=== PATIENT | female | born 1940 | race Caucasian/White ===

== ENCOUNTER 2018-07-17 17:30 | Inpatient (IN) ==
[2018-07-17] MEDS ORDERED: MORPHINE 4 MG/1 ML VIAL IV STA (17:47)
[2018-07-17] MEDS ORDERED: ALBUTEROL/IPRATROPIUM 3 ML NEB RESP TX STA (17:47)
[2018-07-17] MEDS ORDERED: ONDANSETRON 4 MG/2 ML VIAL IV STA (17:47)
[2018-07-17] MEDS ORDERED: FUROSEMIDE 100 MG/10 ML VIAL IV STA (17:47)
[2018-07-17] MEDS ORDERED: NITROGLYCERIN 2% OINT 1 INCH/GM PACK TOP STA (17:47)
[2018-07-17] MEDS ORDERED: ASPIRIN 325 MG TABLET PO STA (17:47)
[2018-07-17] MEDS ORDERED: LABETALOL 20 MG/4 ML SYRINGE IV STA (17:47)
[2018-07-17] MEDS ORDERED: methylPREDNISolone SOD SUC 125 MG/2 ML VIAL IV STA (17:47)
[2018-07-17 18:15] LABS: ABG Base Excess 1.7 MMOL/L (-2.5-2.5); ABG Oxygen Saturation 99.4 % (95-100); ABG TCO2 23.1 MMOL/L (23-27); Allen Test Positive; Pt O2 Delivery Device Other
[2018-07-17 19:16] LABS: Apearance,Urine CLEAR (Clear); Bilirubin,Urine Negative (Negative); Blood, Urine Negative (Negative); Glucose,Urine (UA) Negative (Negative); Ketones,Urine 5 mg/dL (Negative); Mucus,Urine Occasional /LPF (Occasional); Nitrite,Urine Negative (Negative); Protein,Urine Negative; RBC,Urine 1 /HPF (0-4); Squamous Epithelial Cell,Urine Occasional /HPF (0-10); Urine Color Yellow (Yellow); Urine Specific Gravity 1.013 (1.001-1.035); Urine Urobilinogen < 2.0 EU/DL (0.2-1.0); WBC,Urine <1 /HPF (0-6)
[2018-07-17 19:25] LABS: Basophils # 0.1 10*3/uL (0.0-0.2); Basophils % 1.1 % (0.0-0.8); Eosinophils # 0.5 10*3/uL (0.0-0.87); Eosinophils % 6.8 % (0.00-10.9); Hematocrit 39.9 VOL% (35.7-47.0); Hemoglobin 12.6 GM/DL (12.0-16.0); Immature Granulocytes % 0.5 %; Immature Granulocytes Absolute 0.04 #; Lymphocytes # 1.4 10*3/uL (1.4-4.0); Lymphocytes % 17.3 % (21.3-54.2); Mean Corpuscular HGB Conc 31.6 GM/DL (32-36); Mean Corpuscular Hemoglobin 30 PG (27-34); Mean Corpuscular Volume 95.7 FL (87-102); Mean Platelet Volume 9.3 FL (9.6-12.0); Monocytes # 0.7 10*3/uL (0.11-0.8); Monocytes % 8.1 % (1.7-12.7); Neutrophils # 5.3 10*3/uL (1.4-7.4); Neutrophils % 66.2 % (38.7-73.9); Platelet Count 323 T/CUMM (130-400); Red Blood Count 4.17 MC/CUMM (3.8-5.5); Red Cell Distribution Width 13.7 % (9.3-17.3)
[2018-07-17 19:36] LABS: INR 0.9; PT Patient Result 10.3 SECS
[2018-07-17 19:46] LABS: Albumin 3.9 G/DL (3.4-5.0); Bilirubin,Total 0.5 MG/DL (0.2-1.0); Calcium 10.1 MG/DL (8.5-10.1); Osmolality,Calculated 284.5 MOS/KG (273-304); Potassium 3.9 MMOL/L (3.5-5.1); Total Protein 7.8 G/DL (6.4-8.3)
[2018-07-17] MEDS ORDERED: NITROGLYCERIN SL 0.4 MG TABLET SL PRN (22:28)
[2018-07-17] MEDS ORDERED: GLUCAGON 1 MG VIAL IM PRN (22:28)
[2018-07-17] MEDS ORDERED: ACETAMINOPHEN 325 MG TABLET PO PRN (22:28)
[2018-07-17] MEDS ORDERED: DEXTROSE 50% 25 GM/50 ML VIAL IV PRN (22:28)
[2018-07-17] MEDS ORDERED: ONDANSETRON 4 MG/2 ML VIAL IV PRN (22:28)
[2018-07-17] MEDS ORDERED: MORPHINE 4 MG/1 ML VIAL IV PRN (22:28)
[2018-07-17] MEDS: ALBUTEROL/IPRATROPIUM 3 ML NEB RESP TX SCH (23:14)
[2018-07-17] MEDS: SODIUM CHLORIDE 0.9% 1,000 ML IV SCH (23:23)
[2018-07-17] MEDS: ISOSORBIDE MONONITRATE 30 MG TABLET PO SCH (23:23)
[2018-07-17] MEDS: DOCUSATE SODIUM 100 MG CAPSULE PO SCH (23:23)
[2018-07-17] MEDS: ENOXAPARIN 40 MG/0.4 ML SYRINGE SUBCUT SCH (23:23)
[2018-07-17] MEDS: cefTRIAXone 1,000 MG in SYRINGE 1 EACH IV SCH (23:24)
[2018-07-17] MEDS: NITROGLYCERIN 2% OINT 1 INCH/GM PACK TOP SCH (23:25)
[2018-07-17] MEDS: INSULIN REGULAR 100 UNIT/ML SUBCUT SCH (23:33)
[2018-07-18] MEDS: ALBUTEROL/IPRATROPIUM 3 ML NEB RESP TX SCH ×6 (03:04→23:30)
[2018-07-18] MEDS: methylPREDNISolone SOD SUC 40 MG/1 ML VIAL IV SCH ×3 (04:18→21:52)
[2018-07-18 04:52] LABS: Basophils % 0.5 % (0.0-0.8); Hematocrit 37.3 VOL% (35.7-47.0); Hemoglobin 11.6 GM/DL (12.0-16.0); Immature Granulocytes % 0.3 %; Immature Granulocytes Absolute 0.02 #; Lymphocytes # 0.6 10*3/uL (1.4-4.0); Lymphocytes % 9.1 % (21.3-54.2); Mean Corpuscular HGB Conc 31.1 GM/DL (32-36); Mean Corpuscular Hemoglobin 30 PG (27-34); Mean Corpuscular Volume 95.9 FL (87-102); Mean Platelet Volume 9.4 FL (9.6-12.0); Monocytes # 0.1 10*3/uL (0.11-0.8); Monocytes % 1.8 % (1.7-12.7); Neutrophils # 5.3 10*3/uL (1.4-7.4); Neutrophils % 88.3 % (38.7-73.9); Platelet Count 311 T/CUMM (130-400); Red Blood Count 3.89 MC/CUMM (3.8-5.5); Red Cell Distribution Width 13.8 % (9.3-17.3)
[2018-07-18 05:14] LABS: Albumin 3.6 G/DL (3.4-5.0); Bilirubin,Total 0.6 MG/DL (0.2-1.0); Calcium 9.8 MG/DL (8.5-10.1); Osmolality,Calculated 287.7 MOS/KG (273-304); Potassium 3.8 MMOL/L (3.5-5.1); Risk Ratio 1.97; Total Protein 7.4 G/DL (6.4-8.3); VLDL CHOLESTEROL 10.4 MG/DL
[2018-07-18] MEDS: NITROGLYCERIN 2% OINT 1 INCH/GM PACK TOP SCH ×2 (06:09→12:06)
[2018-07-18] MEDS ORDERED: ASPIRIN EC 81 MG TABLET PO SCH (09:00)
[2018-07-18] MEDS: INSULIN REGULAR 100 UNIT/ML SUBCUT SCH ×4 (09:04→21:53)
[2018-07-18] MEDS: DOCUSATE SODIUM 100 MG CAPSULE PO SCH ×3 (09:07→21:52)
[2018-07-18] MEDS: MONTELUKAST 10 MG TABLET PO SCH (09:07)
[2018-07-18] MEDS: FEXOFENADINE 180 MG TABLET PO SCH (09:07)
[2018-07-18] MEDS: ROSUVASTATIN 10 MG TABLET PO SCH (09:07)
[2018-07-18] MEDS: PANTOPRAZOLE 40 MG VIAL IV SCH (09:08)
[2018-07-18] MEDS: ISOSORBIDE MONONITRATE 30 MG TABLET PO SCH ×2 (09:10→21:52)
[2018-07-18] MEDS: CYANOCOBALAMIN 500 MCG TABLET PO SCH (09:10)
[2018-07-18] MEDS: FUROSEMIDE 20 MG TABLET PO SCH (09:11)
[2018-07-18] MEDS: POTASSIUM CHLORIDE 10 MEQ TABLET PO SCH (09:11)
[2018-07-18] MEDS: SERTRALINE 50 MG TABLET PO SCH (09:11)
[2018-07-18] MEDS: ASPIRIN EC 325 MG TABLET PO SCH (09:11)
[2018-07-18] MEDS: METOPROLOL TARTRATE 25 MG TABLET PO SCH (09:11)
[2018-07-18] MEDS: LOSARTAN 50 MG TABLET PO SCH (09:12)
[2018-07-18 09:26] LABS: Troponin I < 0.015 NG/ML (0.00-0.045)
[2018-07-18 11:27] LABS: Troponin I < 0.015 NG/ML (0.00-0.045)
[2018-07-18 15:09] LABS: Troponin I < 0.015 NG/ML (0.00-0.045)
[2018-07-19] MEDS: SODIUM CHLORIDE 0.9% 1,000 ML IV SCH (00:40)
[2018-07-19] MEDS: ENOXAPARIN 40 MG/0.4 ML SYRINGE SUBCUT SCH (00:41)
[2018-07-19] MEDS: cefTRIAXone 1,000 MG in SYRINGE 1 EACH IV SCH (00:41)
[2018-07-19] MEDS: ALBUTEROL/IPRATROPIUM 3 ML NEB RESP TX SCH ×5 (04:19→20:21)
[2018-07-19] MEDS: methylPREDNISolone SOD SUC 40 MG/1 ML VIAL IV SCH ×2 (04:27→12:50)
[2018-07-19 07:55] LABS: Basophils % 0.2 % (0.0-0.8); Hematocrit 39.5 VOL% (35.7-47.0); Hemoglobin 12.4 GM/DL (12.0-16.0); Immature Granulocytes % 0.5 %; Immature Granulocytes Absolute 0.05 #; Lymphocytes # 0.5 10*3/uL (1.4-4.0); Lymphocytes % 5.1 % (21.3-54.2); Mean Corpuscular HGB Conc 31.4 GM/DL (32-36); Mean Corpuscular Hemoglobin 30 PG (27-34); Mean Corpuscular Volume 95.6 FL (87-102); Mean Platelet Volume 9.1 FL (9.6-12.0); Monocytes # 0.4 10*3/uL (0.11-0.8); Monocytes % 3.7 % (1.7-12.7); Neutrophils # 9.6 10*3/uL (1.4-7.4); Neutrophils % 90.5 % (38.7-73.9); Platelet Count 328 T/CUMM (130-400); Red Blood Count 4.13 MC/CUMM (3.8-5.5); Red Cell Distribution Width 13.9 % (9.3-17.3); White Blood Count 10.6 T/CUMM (4-12)
[2018-07-19 08:17] LABS: Calcium 9.5 MG/DL (8.5-10.1); Osmolality,Calculated 287.8 MOS/KG (273-304); Potassium 4.2 MMOL/L (3.5-5.1)
[2018-07-19] MEDS: FEXOFENADINE 180 MG TABLET PO SCH (09:46)
[2018-07-19] MEDS: INSULIN REGULAR 100 UNIT/ML SUBCUT SCH ×3 (09:46→19:37)
[2018-07-19] MEDS: MONTELUKAST 10 MG TABLET PO SCH (09:46)
[2018-07-19] MEDS: ASPIRIN EC 325 MG TABLET PO SCH (09:46)
[2018-07-19] MEDS: ROSUVASTATIN 10 MG TABLET PO SCH (09:47)
[2018-07-19] MEDS: FUROSEMIDE 20 MG TABLET PO SCH (09:48)
[2018-07-19] MEDS: POTASSIUM CHLORIDE 10 MEQ TABLET PO SCH (09:48)
[2018-07-19] MEDS: METOPROLOL TARTRATE 25 MG TABLET PO SCH (09:49)
[2018-07-19] MEDS: CYANOCOBALAMIN 500 MCG TABLET PO SCH (09:49)
[2018-07-19] MEDS: LOSARTAN 50 MG TABLET PO SCH ×2 (09:49→22:06)
[2018-07-19] MEDS: SERTRALINE 50 MG TABLET PO SCH (09:49)
[2018-07-19] MEDS: ISOSORBIDE MONONITRATE 30 MG TABLET PO SCH ×2 (09:49→22:06)
[2018-07-19] MEDS: DOCUSATE SODIUM 100 MG CAPSULE PO SCH ×2 (09:50→22:06)
[2018-07-19] MEDS: PANTOPRAZOLE 40 MG VIAL IV SCH (09:50)
[2018-07-19] MEDS: BENZONATATE 100 MG CAPSULE PO PRN (09:50)
[2018-07-19] MEDS: cloNIDine 0.1 MG TABLET PO SCH (22:08)
[2018-07-20] MEDS: ALBUTEROL/IPRATROPIUM 3 ML NEB RESP TX SCH ×4 (01:06→19:55)
[2018-07-20] MEDS: ENOXAPARIN 40 MG/0.4 ML SYRINGE SUBCUT SCH (03:05)
[2018-07-20] MEDS: cefTRIAXone 1,000 MG in SYRINGE 1 EACH IV SCH (03:05)
[2018-07-20] MEDS: methylPREDNISolone SOD SUC 40 MG/1 ML VIAL IV SCH ×2 (03:06→10:29)
[2018-07-20] MEDS: SODIUM CHLORIDE 0.9% 1,000 ML IV SCH (03:07)
[2018-07-20] MEDS: INSULIN REGULAR 100 UNIT/ML SUBCUT SCH ×5 (03:19→21:39)
[2018-07-20 05:17] LABS: Basophils % 0.3 % (0.0-0.8); Eosinophils % 0.5 % (0.00-10.9); Hematocrit 36.3 VOL% (35.7-47.0); Hemoglobin 11.4 GM/DL (12.0-16.0); Immature Granulocytes % 0.4 %; Immature Granulocytes Absolute 0.03 #; Lymphocytes % 12.9 % (21.3-54.2); Mean Corpuscular HGB Conc 31.4 GM/DL (32-36); Mean Corpuscular Hemoglobin 30 PG (27-34); Mean Corpuscular Volume 96.3 FL (87-102); Mean Platelet Volume 9.3 FL (9.6-12.0); Monocytes # 0.6 10*3/uL (0.11-0.8); Monocytes % 7.3 % (1.7-12.7); Neutrophils % 78.6 % (38.7-73.9); Platelet Count 320 T/CUMM (130-400); Red Blood Count 3.77 MC/CUMM (3.8-5.5); Red Cell Distribution Width 14.2 % (9.3-17.3); White Blood Count 7.6 T/CUMM (4-12)
[2018-07-20 05:32] LABS: Calcium 9.5 MG/DL (8.5-10.1); Osmolality,Calculated 293.4 MOS/KG (273-304); Potassium 4.2 MMOL/L (3.5-5.1)
[2018-07-20] MEDS: PANTOPRAZOLE 40 MG VIAL IV SCH (09:56)
[2018-07-20] MEDS: ROSUVASTATIN 10 MG TABLET PO SCH (10:02)
[2018-07-20] MEDS: BENZONATATE 100 MG CAPSULE PO PRN (10:02)
[2018-07-20] MEDS: FEXOFENADINE 180 MG TABLET PO SCH (10:03)
[2018-07-20] MEDS: METOPROLOL TARTRATE 25 MG TABLET PO SCH (10:03)
[2018-07-20] MEDS: ISOSORBIDE MONONITRATE 30 MG TABLET PO SCH ×2 (10:03→21:38)
[2018-07-20] MEDS: ASPIRIN EC 325 MG TABLET PO SCH (10:03)
[2018-07-20] MEDS: MONTELUKAST 10 MG TABLET PO SCH (10:08)
[2018-07-20] MEDS: DOCUSATE SODIUM 100 MG CAPSULE PO SCH ×2 (10:08→21:38)
[2018-07-20] MEDS: LOSARTAN 50 MG TABLET PO SCH ×2 (10:09→21:38)
[2018-07-20] MEDS: SERTRALINE 50 MG TABLET PO SCH (10:09)
[2018-07-20] MEDS: POTASSIUM CHLORIDE 10 MEQ TABLET PO SCH (10:09)
[2018-07-20] MEDS: CYANOCOBALAMIN 500 MCG TABLET PO SCH (10:09)
[2018-07-20] MEDS: FUROSEMIDE 20 MG TABLET PO SCH (10:09)
[2018-07-20] MEDS: cloNIDine 0.1 MG TABLET PO SCH (21:38)
[2018-07-21] MEDS: ALBUTEROL/IPRATROPIUM 3 ML NEB RESP TX SCH ×4 (01:37→19:59)
[2018-07-21] MEDS: ENOXAPARIN 40 MG/0.4 ML SYRINGE SUBCUT SCH ×2 (01:58→23:13)
[2018-07-21] MEDS: methylPREDNISolone SOD SUC 40 MG/1 ML VIAL IV SCH ×3 (01:59→23:15)
[2018-07-21] MEDS: cefTRIAXone 1,000 MG in SYRINGE 1 EACH IV SCH ×2 (01:59→23:19)
[2018-07-21 05:23] LABS: Basophils % 0.5 % (0.0-0.8); Eosinophils # 0.1 10*3/uL (0.0-0.87); Eosinophils % 1.1 % (0.00-10.9); Hemoglobin 11.9 GM/DL (12.0-16.0); Immature Granulocytes % 0.5 %; Immature Granulocytes Absolute 0.04 #; Lymphocytes % 12.9 % (21.3-54.2); Mean Corpuscular HGB Conc 30.5 GM/DL (32-36); Mean Corpuscular Hemoglobin 30 PG (27-34); Mean Corpuscular Volume 96.8 FL (87-102); Mean Platelet Volume 9.6 FL (9.6-12.0); Monocytes # 0.5 10*3/uL (0.11-0.8); Monocytes % 6.8 % (1.7-12.7); Neutrophils # 5.7 10*3/uL (1.4-7.4); Neutrophils % 78.2 % (38.7-73.9); Platelet Count 330 T/CUMM (130-400); Red Blood Count 4.03 MC/CUMM (3.8-5.5); Red Cell Distribution Width 14.1 % (9.3-17.3); White Blood Count 7.4 T/CUMM (4-12)
[2018-07-21 05:42] LABS: Calcium 9.7 MG/DL (8.5-10.1); Osmolality,Calculated 293.4 MOS/KG (273-304); Potassium 3.5 MMOL/L (3.5-5.1)
[2018-07-21] MEDS: ROSUVASTATIN 10 MG TABLET PO SCH (09:30)
[2018-07-21] MEDS: CYANOCOBALAMIN 500 MCG TABLET PO SCH (09:31)
[2018-07-21] MEDS: ISOSORBIDE MONONITRATE 30 MG TABLET PO SCH ×2 (09:31→21:58)
[2018-07-21] MEDS: FEXOFENADINE 180 MG TABLET PO SCH (09:32)
[2018-07-21] MEDS: SERTRALINE 50 MG TABLET PO SCH (09:32)
[2018-07-21] MEDS: MONTELUKAST 10 MG TABLET PO SCH (09:32)
[2018-07-21] MEDS: ASPIRIN EC 325 MG TABLET PO SCH (09:33)
[2018-07-21] MEDS: BENZONATATE 100 MG CAPSULE PO PRN (09:33)
[2018-07-21] MEDS: POTASSIUM CHLORIDE 10 MEQ TABLET PO SCH (09:33)
[2018-07-21] MEDS: FUROSEMIDE 20 MG TABLET PO SCH (09:33)
[2018-07-21] MEDS: DOCUSATE SODIUM 100 MG CAPSULE PO SCH ×2 (09:33→21:58)
[2018-07-21] MEDS: INSULIN REGULAR 100 UNIT/ML SUBCUT SCH ×3 (09:37→22:00)
[2018-07-21] MEDS: PANTOPRAZOLE 40 MG VIAL IV SCH (09:38)
[2018-07-21] MEDS: LOSARTAN 50 MG TABLET PO SCH (14:50)
[2018-07-21] MEDS: METOPROLOL TARTRATE 25 MG TABLET PO SCH (18:59)
[2018-07-21] MEDS: POLYETHYLENE GLYCOL POWDER 17 GM PACK PO SCH (19:00)
[2018-07-21] MEDS ORDERED: POTASSIUM CHLORIDE 10 MEQ TABLET PO SCH (19:14)
[2018-07-22] MEDS: ALBUTEROL/IPRATROPIUM 3 ML NEB RESP TX SCH ×3 (00:59→13:27)
[2018-07-22 02:47] LABS: Basophils % 0.3 % (0.0-0.8); Eosinophils # 0.1 10*3/uL (0.0-0.87); Eosinophils % 1.4 % (0.00-10.9); Hematocrit 39.7 VOL% (35.7-47.0); Hemoglobin 12.2 GM/DL (12.0-16.0); Immature Granulocytes % 0.6 %; Immature Granulocytes Absolute 0.04 #; Lymphocytes # 0.8 10*3/uL (1.4-4.0); Mean Corpuscular HGB Conc 30.7 GM/DL (32-36); Mean Corpuscular Hemoglobin 30 PG (27-34); Mean Corpuscular Volume 96.1 FL (87-102); Mean Platelet Volume 9.3 FL (9.6-12.0); Monocytes # 0.6 10*3/uL (0.11-0.8); Monocytes % 7.7 % (1.7-12.7); Neutrophils # 5.7 10*3/uL (1.4-7.4); Platelet Count 323 T/CUMM (130-400); Red Blood Count 4.13 MC/CUMM (3.8-5.5); Red Cell Distribution Width 13.8 % (9.3-17.3); White Blood Count 7.2 T/CUMM (4-12)
[2018-07-22 03:07] LABS: Calcium 9.6 MG/DL (8.5-10.1); Osmolality,Calculated 286.8 MOS/KG (273-304); Potassium 3.9 MMOL/L (3.5-5.1)
[2018-07-22] MEDS: INSULIN REGULAR 100 UNIT/ML SUBCUT SCH ×2 (08:24→13:50)
[2018-07-22] MEDS: PANTOPRAZOLE 40 MG VIAL IV SCH (08:39)
[2018-07-22] MEDS: POLYETHYLENE GLYCOL POWDER 17 GM PACK PO SCH (08:39)
[2018-07-22] MEDS: ROSUVASTATIN 10 MG TABLET PO SCH (08:40)
[2018-07-22] MEDS: MONTELUKAST 10 MG TABLET PO SCH (08:40)
[2018-07-22] MEDS: FEXOFENADINE 180 MG TABLET PO SCH (08:41)
[2018-07-22] MEDS: METOPROLOL TARTRATE 25 MG TABLET PO SCH (08:41)
[2018-07-22] MEDS: CYANOCOBALAMIN 500 MCG TABLET PO SCH (08:41)
[2018-07-22] MEDS: FUROSEMIDE 20 MG TABLET PO SCH (08:42)
[2018-07-22] MEDS: SERTRALINE 50 MG TABLET PO SCH (08:42)
[2018-07-22] MEDS: ASPIRIN EC 325 MG TABLET PO SCH (08:42)
[2018-07-22] MEDS: ISOSORBIDE MONONITRATE 30 MG TABLET PO SCH (08:43)
[2018-07-22] MEDS: DOCUSATE SODIUM 100 MG CAPSULE PO SCH (08:44)
[2018-07-22] MEDS ORDERED: LOSARTAN 25 MG TABLET PO SCH (09:00)
[2018-07-22] MEDS: methylPREDNISolone SOD SUC 40 MG/1 ML VIAL IV SCH (13:50)
[2018-07-22 16:01] VITALS: BP 121/72
== END 2018-07-22 16:33 | disposition home or self-care (01) | DRG 193 ==
LOC: EDUNIT# → EDBD → N.ED 17:30 → N.EDINP 19:59 → N.TELEN 21:30
PROVIDERS: ADMIT Internal Medicine; ATTEND Internal Medicine

== ENCOUNTER 2018-12-15 15:27 | Observation (INO) ==
[2018-12-15] MEDS ORDERED: methylPREDNISolone SOD SUC 125 MG/2 ML VIAL IV STA (17:27)
[2018-12-15] MEDS ORDERED: ONDANSETRON 4 MG/2 ML VIAL IV STA (17:27)
[2018-12-15] MEDS ORDERED: AZITHROMYCIN INJ 500 MG in SODIUM CHLORIDE 0.9% 250 ML IV STA (17:27)
[2018-12-15] MEDS ORDERED: ALBUTEROL 2.5 MG/3 ML NEB RESP TX SCH (17:30)
[2018-12-15 18:38] LABS: Basophils # 0.1 10*3/uL (0.0-0.2); Basophils % 0.8 % (0.0-0.8); Eosinophils # 0.6 10*3/uL (0.0-0.87); Eosinophils % 7.4 % (0.00-10.9); Hematocrit 41.8 VOL% (35.7-47.0); Hemoglobin 12.9 GM/DL (12.0-16.0); Immature Granulocytes % 0.4 %; Immature Granulocytes Absolute 0.03 #; Lymphocytes # 2.2 10*3/uL (1.4-4.0); Lymphocytes % 29.3 % (21.3-54.2); Mean Corpuscular HGB Conc 30.9 GM/DL (32-36); Mean Corpuscular Volume 94.8 FL (87-102); Mean Platelet Volume 8.9 FL (9.6-12.0); Monocytes % 10.1 % (1.7-12.7); Platelet Count 268 T/CUMM (130-400); Red Blood Count 4.41 MC/CUMM (3.8-5.5); Red Cell Distribution Width 14.1 % (9.3-17.3); White Blood Count 7.6 T/CUMM (4-12)
[2018-12-15 18:51] LABS: INR 0.9; Partial Thromboplastin Time 23.6 SECS (0-40)
[2018-12-15 18:59] LABS: Alanine Aminotransferase 76 U/L (13-56); Albumin 4.1 G/DL (3.4-5.0); Alkaline Phosphatase 88 U/L (45-117); Aspartate Amino Transferase 39 U/L (0-37); Blood Urea Nitrogen 37 MG/DL (7-18); Calcium 9.6 MG/DL (8.5-10.1); Glucose 117 MG/DL (74-106); Osmolality,Calculated 292.1 MOS/KG (273-304); Total Protein 7.7 G/DL (6.4-8.3); Troponin I < 0.015 NG/ML (0.00-0.045)
[2018-12-15] MEDS ORDERED: LORazepam 2 MG/1 ML VIAL IV STA (19:00)
[2018-12-15] MEDS ORDERED: FEXOFENADINE 180 MG TABLET PO PRN (20:23)
[2018-12-15] MEDS ORDERED: GLUCAGON 1 MG VIAL IM PRN (20:23)
[2018-12-15] MEDS ORDERED: ONDANSETRON 4 MG/2 ML VIAL IV PRN (20:23)
[2018-12-15] MEDS ORDERED: DEXTROSE 50% 25 GM/50 ML VIAL IV PRN (20:23)
[2018-12-15 20:46] LABS: Apearance,Urine CLEAR (Clear); Bacteria,Urine Occasional /HPF (Few); Bilirubin,Urine Negative (Negative); Blood, Urine Negative (Negative); Glucose,Urine (UA) Negative (Negative); Hyaline Casts,Urine 1 /LPF (0-3); Ketones,Urine 5 mg/dL (Negative); Nitrite,Urine Negative (Negative); Protein,Urine Negative; RBC,Urine 1 /HPF (0-4); Squamous Epithelial Cell,Urine Occasional /HPF (0-10); Urine Color Yellow (Yellow); Urine Specific Gravity 1.024 (1.001-1.035); Urine Urobilinogen < 2.0 EU/DL (0.2-1.0); WBC,Urine 9 /HPF (0-6)
[2018-12-15] MEDS ORDERED: ROSUVASTATIN 10 MG TABLET PO SCH (21:00)
[2018-12-15] MEDS: MONTELUKAST 10 MG TABLET PO SCH (21:40)
[2018-12-15] MEDS: SERTRALINE 50 MG TABLET PO SCH (21:40)
[2018-12-15] MEDS: INSULIN REGULAR 100 UNIT/ML SUBCUT SCH (21:41)
[2018-12-15] MEDS ORDERED: NITROGLYCERIN SL 0.4 MG TABLET SL PRN (22:23)
[2018-12-16] MEDS: ALBUTEROL/IPRATROPIUM 3 ML NEB RESP TX SCH ×4 (02:13→19:28)
[2018-12-16] MEDS ORDERED: cefTRIAXone 1,000 MG in SYRINGE 1 EACH IV ONE (07:11)
[2018-12-16] MEDS ORDERED: AZITHROMYCIN 250 MG TABLET PO ONE (07:11)
[2018-12-16] MEDS: POTASSIUM CHLORIDE 10 MEQ TABLET PO SCH (08:52)
[2018-12-16] MEDS: PANTOPRAZOLE 40 MG TABLET PO SCH (08:53)
[2018-12-16] MEDS: DOCUSATE SODIUM 100 MG CAPSULE PO SCH ×2 (08:53→21:49)
[2018-12-16] MEDS: ASPIRIN EC 325 MG TABLET PO SCH (08:53)
[2018-12-16] MEDS: LOSARTAN 25 MG TABLET PO SCH (08:53)
[2018-12-16] MEDS: FUROSEMIDE 20 MG TABLET PO SCH (08:53)
[2018-12-16] MEDS: ISOSORBIDE MONONITRATE 60 MG TABLET PO SCH (08:53)
[2018-12-16] MEDS: ROSUVASTATIN 10 MG TABLET PO SCH (08:53)
[2018-12-16] MEDS: METOPROLOL TARTRATE 25 MG TABLET PO SCH ×2 (08:53→21:50)
[2018-12-16] MEDS: metFORMIN 500 MG TABLET PO SCH (08:53)
[2018-12-16] MEDS: methylPREDNISolone SOD SUC 40 MG/1 ML VIAL IV SCH ×2 (08:54→19:33)
[2018-12-16] MEDS: INSULIN REGULAR 100 UNIT/ML SUBCUT SCH ×4 (09:00→21:49)
[2018-12-16] MEDS ORDERED: methylPREDNISolone SOD SUC 125 MG/2 ML VIAL IV SCH (09:00)
[2018-12-16] MEDS ORDERED: AZITHROMYCIN INJ 500 MG in SODIUM CHLORIDE 0.9% 250 ML IV SCH (21:00)
[2018-12-16] MEDS: SERTRALINE 50 MG TABLET PO SCH (21:50)
[2018-12-16] MEDS: MONTELUKAST 10 MG TABLET PO SCH (21:50)
[2018-12-16] MEDS: BENZONATATE 100 MG CAPSULE PO PRN (21:50)
[2018-12-17 05:00] LABS: Basophils % 0.1 % (0.0-0.8); Hematocrit 38.3 VOL% (35.7-47.0); Immature Granulocytes % 0.6 %; Immature Granulocytes Absolute 0.06 #; Lymphocytes # 0.5 10*3/uL (1.4-4.0); Lymphocytes % 4.9 % (21.3-54.2); Mean Corpuscular HGB Conc 31.3 GM/DL (32-36); Mean Corpuscular Volume 93.6 FL (87-102); Mean Platelet Volume 9.5 FL (9.6-12.0); Monocytes % 4.6 % (1.7-12.7); Neutrophils % 89.8 % (38.7-73.9); Platelet Count 286 T/CUMM (130-400); Red Blood Count 4.09 MC/CUMM (3.8-5.5); Red Cell Distribution Width 14.5 % (9.3-17.3); White Blood Count 10.7 T/CUMM (4-12)
[2018-12-17 05:03] LABS: Calcium 9.4 MG/DL (8.5-10.1); Osmolality,Calculated 294.4 MOS/KG (273-304)
[2018-12-17 05:26] LABS: Lymphocytes 6 % (20-55); Platelet Estimate Normal; Segmented Neutrophils 89 % (50-85); Total Cells Counted 100
[2018-12-17] MEDS: ALBUTEROL/IPRATROPIUM 3 ML NEB RESP TX SCH ×4 (08:10→19:25)
[2018-12-17] MEDS ORDERED: methylPREDNISolone SOD SUC 125 MG/2 ML VIAL IV SCH (09:30)
[2018-12-17] MEDS: FUROSEMIDE 20 MG TABLET PO SCH (09:32)
[2018-12-17] MEDS: AZITHROMYCIN 250 MG TABLET PO SCH (09:33)
[2018-12-17] MEDS: POTASSIUM CHLORIDE 10 MEQ TABLET PO SCH (09:33)
[2018-12-17] MEDS: ISOSORBIDE MONONITRATE 60 MG TABLET PO SCH (09:33)
[2018-12-17] MEDS: ASPIRIN EC 325 MG TABLET PO SCH (09:33)
[2018-12-17] MEDS: LOSARTAN 25 MG TABLET PO SCH (09:34)
[2018-12-17] MEDS: metFORMIN 500 MG TABLET PO SCH (09:34)
[2018-12-17] MEDS: METOPROLOL TARTRATE 25 MG TABLET PO SCH ×2 (09:34→20:30)
[2018-12-17] MEDS: ROSUVASTATIN 10 MG TABLET PO SCH (09:35)
[2018-12-17] MEDS: PANTOPRAZOLE 40 MG TABLET PO SCH (09:35)
[2018-12-17] MEDS: DOCUSATE SODIUM 100 MG CAPSULE PO SCH ×2 (09:35→20:30)
[2018-12-17] MEDS: INSULIN REGULAR 100 UNIT/ML SUBCUT SCH ×4 (09:35→20:35)
[2018-12-17] MEDS: methylPREDNISolone SOD SUC 40 MG/1 ML VIAL IV SCH ×2 (09:40→20:30)
[2018-12-17] MEDS ORDERED: LOSARTAN 50 MG TABLET PO SCH (10:47)
[2018-12-17] MEDS ORDERED: METOPROLOL TARTRATE 25 MG TABLET PO SCH (10:47)
[2018-12-17] MEDS ORDERED: LOSARTAN 25 MG TABLET PO ONE (11:30)
[2018-12-17] MEDS ORDERED: METOPROLOL TARTRATE 25 MG TABLET PO ONE (11:30)
[2018-12-17] MEDS: BENZONATATE 100 MG CAPSULE PO PRN ×2 (16:11→20:31)
[2018-12-17] MEDS: DEXTROMETHORPHAN ER 6 MG/ML 90 ML/BOTTLE PO PRN (18:20)
[2018-12-17] MEDS: TEMAZEPAM 7.5 MG CAPSULE PO SCH (20:30)
[2018-12-17] MEDS: MONTELUKAST 10 MG TABLET PO SCH (20:30)
[2018-12-17] MEDS: SERTRALINE 50 MG TABLET PO SCH (20:30)
[2018-12-18] MEDS: ALBUTEROL/IPRATROPIUM 3 ML NEB RESP TX SCH ×4 (00:45→19:57)
[2018-12-18] MEDS: methylPREDNISolone SOD SUC 40 MG/1 ML VIAL IV SCH ×2 (08:06→21:40)
[2018-12-18] MEDS: DEXTROMETHORPHAN ER 6 MG/ML 90 ML/BOTTLE PO PRN (08:06)
[2018-12-18] MEDS: DOCUSATE SODIUM 100 MG CAPSULE PO SCH ×2 (08:06→21:39)
[2018-12-18] MEDS: FUROSEMIDE 20 MG TABLET PO SCH (08:07)
[2018-12-18] MEDS: ROSUVASTATIN 10 MG TABLET PO SCH (08:07)
[2018-12-18] MEDS: AZITHROMYCIN 250 MG TABLET PO SCH (08:07)
[2018-12-18] MEDS: POTASSIUM CHLORIDE 10 MEQ TABLET PO SCH (08:07)
[2018-12-18] MEDS: ISOSORBIDE MONONITRATE 60 MG TABLET PO SCH (08:08)
[2018-12-18] MEDS: LOSARTAN 50 MG TABLET PO SCH (08:08)
[2018-12-18] MEDS: METOPROLOL TARTRATE 25 MG TABLET PO SCH ×2 (08:08→21:39)
[2018-12-18] MEDS: PANTOPRAZOLE 40 MG TABLET PO SCH (08:08)
[2018-12-18] MEDS: ASPIRIN EC 325 MG TABLET PO SCH (08:08)
[2018-12-18] MEDS: metFORMIN 500 MG TABLET PO SCH (08:08)
[2018-12-18] MEDS: BENZONATATE 100 MG CAPSULE PO PRN ×3 (08:08→21:42)
[2018-12-18] MEDS: INSULIN REGULAR 100 UNIT/ML SUBCUT SCH ×4 (08:09→21:39)
[2018-12-18] MEDS ORDERED: cefTRIAXone 500 MG in SYRINGE 1 EACH IV SCH (15:00)
[2018-12-18] MEDS: SODIUM CHLORIDE 0.45% 1,000 ML IV SCH (18:29)
[2018-12-18] MEDS: TEMAZEPAM 7.5 MG CAPSULE PO SCH (21:39)
[2018-12-18] MEDS: MONTELUKAST 10 MG TABLET PO SCH (21:39)
[2018-12-18] MEDS: SERTRALINE 50 MG TABLET PO SCH (21:42)
[2018-12-18] MEDS: cefTRIAXone 500 MG in SYRINGE 1 EACH IV SCH (21:42)
[2018-12-19] MEDS: ALBUTEROL/IPRATROPIUM 3 ML NEB RESP TX SCH ×4 (00:53→19:50)
[2018-12-19 04:08] LABS: Basophils % 0.4 % (0.0-0.8); Eosinophils % 0.1 % (0.00-10.9); Hematocrit 41.8 VOL% (35.7-47.0); Hemoglobin 12.7 GM/DL (12.0-16.0); Immature Granulocytes % 0.5 %; Immature Granulocytes Absolute 0.04 #; Lymphocytes # 0.8 10*3/uL (1.4-4.0); Mean Corpuscular HGB Conc 30.4 GM/DL (32-36); Mean Corpuscular Volume 94.6 FL (87-102); Mean Platelet Volume 9.2 FL (9.6-12.0); Monocytes % 5.7 % (1.7-12.7); Neutrophils % 83.3 % (38.7-73.9); Platelet Count 296 T/CUMM (130-400); Red Blood Count 4.42 MC/CUMM (3.8-5.5); Red Cell Distribution Width 14.5 % (9.3-17.3); White Blood Count 8.1 T/CUMM (4-12)
[2018-12-19 04:40] LABS: Albumin 3.8 G/DL (3.4-5.0); Bilirubin,Total 0.5 MG/DL (0.2-1.0); Calcium 9.5 MG/DL (8.5-10.1); Osmolality,Calculated 289.7 MOS/KG (273-304); Total Protein 7.3 G/DL (6.4-8.3)
[2018-12-19] MEDS ORDERED: METOPROLOL TARTRATE 25 MG TABLET PO ONE (06:00)
[2018-12-19] MEDS: INSULIN REGULAR 100 UNIT/ML SUBCUT SCH ×4 (08:25→20:41)
[2018-12-19] MEDS: metFORMIN 500 MG TABLET PO SCH (09:13)
[2018-12-19] MEDS: ROSUVASTATIN 10 MG TABLET PO SCH (09:13)
[2018-12-19] MEDS: methylPREDNISolone SOD SUC 40 MG/1 ML VIAL IV SCH ×2 (09:13→20:42)
[2018-12-19] MEDS: METOPROLOL TARTRATE 25 MG TABLET PO SCH ×2 (09:14→20:41)
[2018-12-19] MEDS: AZITHROMYCIN 250 MG TABLET PO SCH (09:14)
[2018-12-19] MEDS: LOSARTAN 50 MG TABLET PO SCH (09:14)
[2018-12-19] MEDS: POTASSIUM CHLORIDE 10 MEQ TABLET PO SCH (09:14)
[2018-12-19] MEDS: FUROSEMIDE 20 MG TABLET PO SCH (09:14)
[2018-12-19] MEDS: ASPIRIN EC 325 MG TABLET PO SCH (09:15)
[2018-12-19] MEDS: DOCUSATE SODIUM 100 MG CAPSULE PO SCH ×2 (09:15→20:41)
[2018-12-19] MEDS: BENZONATATE 100 MG CAPSULE PO PRN ×2 (09:15→20:42)
[2018-12-19] MEDS: ISOSORBIDE MONONITRATE 60 MG TABLET PO SCH (09:15)
[2018-12-19] MEDS: SODIUM CHLORIDE 0.45% 1,000 ML IV SCH (09:18)
[2018-12-19] MEDS: PANTOPRAZOLE 40 MG TABLET PO SCH (09:27)
[2018-12-19] MEDS: DEXTROMETHORPHAN ER 6 MG/ML 90 ML/BOTTLE PO PRN (09:28)
[2018-12-19] MEDS ORDERED: cloNIDine 0.1 MG TABLET PO PRN (14:22)
[2018-12-19] MEDS: TEMAZEPAM 7.5 MG CAPSULE PO SCH (20:41)
[2018-12-19] MEDS: SERTRALINE 50 MG TABLET PO SCH (20:42)
[2018-12-19] MEDS: MONTELUKAST 10 MG TABLET PO SCH (20:42)
[2018-12-19] MEDS: cefTRIAXone 500 MG in SYRINGE 1 EACH IV SCH (20:44)
[2018-12-20] MEDS: ALBUTEROL/IPRATROPIUM 3 ML NEB RESP TX SCH ×3 (00:30→13:30)
[2018-12-20 04:59] LABS: Calcium 9.7 MG/DL (8.5-10.1); Osmolality,Calculated 288.5 MOS/KG (273-304)
[2018-12-20] MEDS: SODIUM CHLORIDE 0.45% 1,000 ML IV SCH ×2 (07:41→10:00)
[2018-12-20] MEDS: INSULIN REGULAR 100 UNIT/ML SUBCUT SCH ×3 (08:28→17:13)
[2018-12-20] MEDS: FUROSEMIDE 20 MG TABLET PO SCH (09:44)
[2018-12-20] MEDS: PANTOPRAZOLE 40 MG TABLET PO SCH (09:44)
[2018-12-20] MEDS: LOSARTAN 50 MG TABLET PO SCH (09:44)
[2018-12-20] MEDS: ISOSORBIDE MONONITRATE 60 MG TABLET PO SCH (09:44)
[2018-12-20] MEDS: methylPREDNISolone SOD SUC 40 MG/1 ML VIAL IV SCH (09:44)
[2018-12-20] MEDS: ROSUVASTATIN 10 MG TABLET PO SCH (09:44)
[2018-12-20] MEDS: METOPROLOL TARTRATE 25 MG TABLET PO SCH (09:44)
[2018-12-20] MEDS: metFORMIN 500 MG TABLET PO SCH (09:45)
[2018-12-20] MEDS: DOCUSATE SODIUM 100 MG CAPSULE PO SCH (09:45)
[2018-12-20] MEDS: AZITHROMYCIN 250 MG TABLET PO SCH (09:45)
[2018-12-20] MEDS: ASPIRIN EC 325 MG TABLET PO SCH (09:45)
[2018-12-20] MEDS: POTASSIUM CHLORIDE 10 MEQ TABLET PO SCH (09:45)
[2018-12-20 15:57] VITALS: BP 150/80
[2018-12-20] MEDS ORDERED: BUDESONIDE/FORMOTEROL 160-4.5 INHALER 6 GM INH SCH (21:00)
== END 2018-12-20 18:12 | disposition home or self-care (01) ==
LOC: N.EDINP 15:27 → N.ED 15:27 → N.TELEN 21:00
PROVIDERS: ADMIT Internal Medicine; ATTEND Internal Medicine

== ENCOUNTER 2019-05-07 11:48 | Inpatient (IN) ==
[2019-05-07] MEDS ORDERED: ALBUTEROL/IPRATROPIUM 3 ML NEB RESP TX STA (12:37)
[2019-05-07] MEDS ORDERED: cefTRIAXone 1,000 MG in SODIUM CHLORIDE 0.9% 100 ML IV STA (12:37)
[2019-05-07] MEDS ORDERED: NITROGLYCERIN 2% OINT 1 INCH/GM PACK TOP STA (12:37)
[2019-05-07] MEDS ORDERED: FUROSEMIDE 40 MG/4 ML VIAL IV STA (12:37)
[2019-05-07] MEDS ORDERED: hydrALAZINE 20 MG/1 ML VIAL IV STA (12:37)
[2019-05-07] MEDS ORDERED: ONDANSETRON 4 MG/2 ML VIAL IV STA (12:37)
[2019-05-07] MEDS ORDERED: methylPREDNISolone SOD SUC 125 MG/2 ML VIAL IV STA (12:37)
[2019-05-07 12:50] LABS: Basophils # 0.1 10*3/uL (0.0-0.2); Basophils % 1.1 % (0.0-0.8); Eosinophils # 0.6 10*3/uL (0.0-0.87); Eosinophils % 7.4 % (0.00-10.9); Hematocrit 41.7 VOL% (35.7-47.0); Hemoglobin 13.1 GM/DL (12.0-16.0); Immature Granulocytes % 0.3 %; Immature Granulocytes Absolute 0.02 #; Lymphocytes # 1.1 10*3/uL (1.4-4.0); Lymphocytes % 14.7 % (21.3-54.2); Mean Corpuscular HGB Conc 31.4 GM/DL (32-36); Mean Corpuscular Volume 93.7 FL (87-102); Mean Platelet Volume 9.6 FL (9.6-12.0); Monocytes % 9.3 % (1.7-12.7); Neutrophils % 67.2 % (38.7-73.9); Platelet Count 297 T/CUMM (130-400); Red Blood Count 4.45 MC/CUMM (3.8-5.5); Red Cell Distribution Width 14.1 % (9.3-17.3); White Blood Count 7.4 T/CUMM (4-12)
[2019-05-07 12:57] LABS: PT Patient Result 10.5 SECS (9.6-12.2)
[2019-05-07 13:05] LABS: ABG Base Excess 2.3 MMOL/L (-2.5-2.5); ABG HCO3 26.3 MMOL/L (20-26); ABG Oxygen Saturation 94.4 % (95-100); ABG PCO2 39.9 MM HG (35-48); ABG PH 7.432 (7.35-7.45); ABG PO2 67.5 MM HG (80-95); ABG TCO2 23.4 MMOL/L (23-27); Allen Test Positive
[2019-05-07 13:26] LABS: Albumin 4.1 G/DL (3.4-5.0); Bilirubin,Total 0.6 MG/DL (0.2-1.0); Calcium 9.4 MG/DL (8.5-10.1); Osmolality,Calculated 282.7 MOS/KG (273-304)
[2019-05-07 13:41] LABS: Apearance,Urine CLEAR (Clear); Bilirubin,Urine Negative (Negative); Blood, Urine Negative (Negative); Glucose,Urine (UA) Negative (Negative); Ketones,Urine Negative (Negative); Nitrite,Urine Negative (Negative); Protein,Urine Negative; Squamous Epithelial Cell,Urine Occasional /HPF (0-10); Urine Color Straw (Yellow); Urine Specific Gravity 1.012 (1.001-1.035); Urine Urobilinogen < 2.0 EU/DL (0.2-1.0)
[2019-05-07] MEDS ORDERED: LORazepam 2 MG/1 ML VIAL ONE (13:41)
[2019-05-07] MEDS ORDERED: LORazepam 2 MG/1 ML VIAL IV STA (13:46)
[2019-05-07] MEDS ORDERED: ALBUTEROL/IPRATROPIUM 3 ML NEB RESP TX SCH ×2 (15:20→19:00)
[2019-05-07] MEDS ORDERED: ALBUTEROL 2.5 MG/3 ML NEB RESP TX PRN (15:20)
[2019-05-07] MEDS ORDERED: ONDANSETRON 4 MG/2 ML VIAL IV PRN (15:20)
[2019-05-07] MEDS ORDERED: NITROGLYCERIN SL 0.4 MG TABLET SL PRN (15:20)
[2019-05-07] MEDS ORDERED: BENZONATATE 100 MG CAPSULE PO PRN (15:20)
[2019-05-07] MEDS ORDERED: LORazepam 2 MG/1 ML VIAL IV PRN (15:20)
[2019-05-07] MEDS: risperiDONE 1 MG TABLET PO SCH ×2 (16:18→22:03)
[2019-05-07] MEDS: SODIUM CHLORIDE 0.9% 1,000 ML IV SCH (16:19)
[2019-05-07] MEDS: ALBUTEROL/IPRATROPIUM 3 ML NEB RESP TX SCH (19:41)
[2019-05-07] MEDS: ACETAMINOPHEN 325 MG TABLET PO PRN (21:45)
[2019-05-07] MEDS: DOCUSATE SODIUM 100 MG CAPSULE PO SCH (21:47)
[2019-05-07] MEDS: METOPROLOL TARTRATE 25 MG TABLET PO SCH (21:47)
[2019-05-07] MEDS: ENOXAPARIN 40 MG/0.4 ML SYRINGE SUBCUT SCH (21:49)
[2019-05-07] MEDS: methylPREDNISolone SOD SUC 40 MG/1 ML VIAL IV SCH (21:59)
[2019-05-08] MEDS: ALBUTEROL/IPRATROPIUM 3 ML NEB RESP TX SCH ×4 (00:12→18:40)
[2019-05-08] MEDS: methylPREDNISolone SOD SUC 40 MG/1 ML VIAL IV SCH ×3 (04:58→21:31)
[2019-05-08 05:43] LABS: Basophils % 0.3 % (0.0-0.8); Hematocrit 44.1 VOL% (35.7-47.0); Hemoglobin 13.9 GM/DL (12.0-16.0); Immature Granulocytes % 0.5 %; Immature Granulocytes Absolute 0.04 #; Lymphocytes # 0.8 10*3/uL (1.4-4.0); Lymphocytes % 9.6 % (21.3-54.2); Mean Corpuscular HGB Conc 31.5 GM/DL (32-36); Mean Corpuscular Volume 92.5 FL (87-102); Mean Platelet Volume 9.4 FL (9.6-12.0); Monocytes % 2.9 % (1.7-12.7); Neutrophils % 86.7 % (38.7-73.9); Platelet Count 323 T/CUMM (130-400); Red Blood Count 4.77 MC/CUMM (3.8-5.5); Red Cell Distribution Width 14.3 % (9.3-17.3)
[2019-05-08 06:15] LABS: Albumin 4.4 G/DL (3.4-5.0); Bilirubin,Total 0.5 MG/DL (0.2-1.0); Calcium 10.4 MG/DL (8.5-10.1); Osmolality,Calculated 284.8 MOS/KG (273-304); Total Protein 8.8 G/DL (6.4-8.3)
[2019-05-08] MEDS: risperiDONE 1 MG TABLET PO SCH ×2 (08:44→21:44)
[2019-05-08] MEDS: LEVOFLOXACIN 500 MG TABLET PO SCH (08:44)
[2019-05-08] MEDS: DOCUSATE SODIUM 100 MG CAPSULE PO SCH ×2 (08:45→21:44)
[2019-05-08] MEDS: CYANOCOBALAMIN 500 MCG TABLET PO SCH (08:45)
[2019-05-08] MEDS: ROSUVASTATIN 10 MG TABLET PO SCH (08:45)
[2019-05-08] MEDS: PANTOPRAZOLE 40 MG TABLET PO SCH (08:45)
[2019-05-08] MEDS: FEXOFENADINE 180 MG TABLET PO SCH (08:46)
[2019-05-08] MEDS: SERTRALINE 50 MG TABLET PO SCH (08:46)
[2019-05-08] MEDS: FUROSEMIDE 20 MG TABLET PO SCH (08:46)
[2019-05-08] MEDS: POTASSIUM CHLORIDE 20 MEQ TABLET PO SCH (08:46)
[2019-05-08] MEDS: METOPROLOL TARTRATE 25 MG TABLET PO SCH ×2 (08:46→21:44)
[2019-05-08] MEDS: ISOSORBIDE MONONITRATE 60 MG TABLET PO SCH (08:46)
[2019-05-08] MEDS: MULTIVITAMIN (CENTRUM) TABLET PO SCH (08:46)
[2019-05-08] MEDS: MONTELUKAST 10 MG TABLET PO SCH (08:46)
[2019-05-08] MEDS ORDERED: LOSARTAN 50 MG TABLET PO SCH (09:00)
[2019-05-08] MEDS: SODIUM CHLORIDE 0.9% 1,000 ML IV SCH (16:22)
[2019-05-08] MEDS: ENOXAPARIN 40 MG/0.4 ML SYRINGE SUBCUT SCH (21:44)
[2019-05-09] MEDS: ALBUTEROL/IPRATROPIUM 3 ML NEB RESP TX SCH ×4 (01:21→20:04)
[2019-05-09] MEDS: SODIUM CHLORIDE 0.9% 1,000 ML IV SCH ×3 (04:55→19:06)
[2019-05-09] MEDS: methylPREDNISolone SOD SUC 40 MG/1 ML VIAL IV SCH ×3 (04:58→21:22)
[2019-05-09 07:06] LABS: Osmolality,Calculated 292.4 MOS/KG (273-304)
[2019-05-09] MEDS: SERTRALINE 50 MG TABLET PO SCH (09:45)
[2019-05-09] MEDS: CYANOCOBALAMIN 500 MCG TABLET PO SCH (09:46)
[2019-05-09] MEDS: ROSUVASTATIN 10 MG TABLET PO SCH (09:46)
[2019-05-09] MEDS: DOCUSATE SODIUM 100 MG CAPSULE PO SCH ×2 (09:46→21:18)
[2019-05-09] MEDS: MULTIVITAMIN (CENTRUM) TABLET PO SCH (09:47)
[2019-05-09] MEDS: FEXOFENADINE 180 MG TABLET PO SCH (09:47)
[2019-05-09] MEDS: FUROSEMIDE 20 MG TABLET PO SCH (09:47)
[2019-05-09] MEDS: GLIMEPIRIDE 2 MG TABLET PO SCH (09:47)
[2019-05-09] MEDS: risperiDONE 1 MG TABLET PO SCH ×2 (09:48→21:20)
[2019-05-09] MEDS: METOPROLOL TARTRATE 25 MG TABLET PO SCH (09:48)
[2019-05-09] MEDS: LOSARTAN 25 MG TABLET PO SCH (09:48)
[2019-05-09] MEDS: MONTELUKAST 10 MG TABLET PO SCH (09:48)
[2019-05-09] MEDS: POTASSIUM CHLORIDE 20 MEQ TABLET PO SCH (09:48)
[2019-05-09] MEDS: ISOSORBIDE MONONITRATE 60 MG TABLET PO SCH (09:48)
[2019-05-09] MEDS: LEVOFLOXACIN 500 MG TABLET PO SCH (09:49)
[2019-05-09] MEDS: PANTOPRAZOLE 40 MG TABLET PO SCH (09:49)
[2019-05-09] MEDS: ACETAMINOPHEN 325 MG TABLET PO PRN (18:19)
[2019-05-09] MEDS ORDERED: cloNIDine 0.1 MG TABLET PO ONE (18:28)
[2019-05-09] MEDS: METOPROLOL TARTRATE 50 MG TABLET PO SCH (21:17)
[2019-05-09] MEDS: ENOXAPARIN 40 MG/0.4 ML SYRINGE SUBCUT SCH (21:21)
[2019-05-10] MEDS: ALBUTEROL/IPRATROPIUM 3 ML NEB RESP TX SCH ×4 (00:44→19:32)
[2019-05-10] MEDS: methylPREDNISolone SOD SUC 40 MG/1 ML VIAL IV SCH ×2 (05:16→16:05)
[2019-05-10 06:26] LABS: Basophils % 0.1 % (0.0-0.8); Hematocrit 35.2 VOL% (35.7-47.0); Immature Granulocytes % 0.3 %; Immature Granulocytes Absolute 0.02 #; Lymphocytes # 0.7 10*3/uL (1.4-4.0); Lymphocytes % 9.3 % (21.3-54.2); Mean Corpuscular HGB Conc 31.3 GM/DL (32-36); Mean Corpuscular Volume 93.4 FL (87-102); Mean Platelet Volume 9.7 FL (9.6-12.0); Monocytes % 6.4 % (1.7-12.7); Neutrophils % 83.9 % (38.7-73.9); Red Cell Distribution Width 14.5 % (9.3-17.3); White Blood Count 7.3 T/CUMM (4-12)
[2019-05-10 06:52] LABS: Platelet Count 248 T/CUMM (130-400); Red Blood Count 3.77 MC/CUMM (3.8-5.5)
[2019-05-10] MEDS: ROSUVASTATIN 10 MG TABLET PO SCH (09:03)
[2019-05-10] MEDS: GLIMEPIRIDE 2 MG TABLET PO SCH (09:03)
[2019-05-10] MEDS: MULTIVITAMIN (CENTRUM) TABLET PO SCH (09:04)
[2019-05-10] MEDS: LOSARTAN 25 MG TABLET PO SCH (09:04)
[2019-05-10] MEDS: METOPROLOL TARTRATE 50 MG TABLET PO SCH ×2 (09:04→21:57)
[2019-05-10] MEDS: MONTELUKAST 10 MG TABLET PO SCH (09:04)
[2019-05-10] MEDS: CYANOCOBALAMIN 500 MCG TABLET PO SCH (09:04)
[2019-05-10] MEDS: FEXOFENADINE 180 MG TABLET PO SCH (09:04)
[2019-05-10] MEDS: risperiDONE 1 MG TABLET PO SCH ×2 (09:04→16:04)
[2019-05-10] MEDS: DOCUSATE SODIUM 100 MG CAPSULE PO SCH ×2 (09:05→21:57)
[2019-05-10] MEDS: POTASSIUM CHLORIDE 20 MEQ TABLET PO SCH (09:05)
[2019-05-10] MEDS: ISOSORBIDE MONONITRATE 60 MG TABLET PO SCH (09:05)
[2019-05-10] MEDS: LEVOFLOXACIN 500 MG TABLET PO SCH (09:05)
[2019-05-10] MEDS: SERTRALINE 50 MG TABLET PO SCH (09:05)
[2019-05-10] MEDS: FUROSEMIDE 20 MG TABLET PO SCH (09:05)
[2019-05-10] MEDS: PANTOPRAZOLE 40 MG TABLET PO SCH (09:05)
[2019-05-10] MEDS: SODIUM CHLORIDE 0.9% 1,000 ML IV SCH (09:06)
[2019-05-10] MEDS: ENOXAPARIN 40 MG/0.4 ML SYRINGE SUBCUT SCH (21:58)
[2019-05-11] MEDS: ALBUTEROL/IPRATROPIUM 3 ML NEB RESP TX SCH ×4 (01:13→19:16)
[2019-05-11] MEDS: methylPREDNISolone SOD SUC 40 MG/1 ML VIAL IV SCH (05:04)
[2019-05-11 06:13] LABS: Basophils % 0.3 % (0.0-0.8); Eosinophils % 0.3 % (0.00-10.9); Hematocrit 38.2 VOL% (35.7-47.0); Hemoglobin 12.1 GM/DL (12.0-16.0); Immature Granulocytes % 0.4 %; Immature Granulocytes Absolute 0.03 #; Lymphocytes # 1.7 10*3/uL (1.4-4.0); Lymphocytes % 23.9 % (21.3-54.2); Mean Corpuscular HGB Conc 31.7 GM/DL (32-36); Mean Corpuscular Volume 92.3 FL (87-102); Mean Platelet Volume 9.8 FL (9.6-12.0); Monocytes % 11.5 % (1.7-12.7); Neutrophils % 63.6 % (38.7-73.9); Platelet Count 263 T/CUMM (130-400); Red Blood Count 4.14 MC/CUMM (3.8-5.5); Red Cell Distribution Width 14.4 % (9.3-17.3); White Blood Count 7.2 T/CUMM (4-12)
[2019-05-11] MEDS: MONTELUKAST 10 MG TABLET PO SCH ×2 (06:35→09:10)
[2019-05-11] MEDS: FEXOFENADINE 180 MG TABLET PO SCH ×2 (06:36→09:13)
[2019-05-11] MEDS: SERTRALINE 50 MG TABLET PO SCH ×2 (06:36→09:13)
[2019-05-11] MEDS: FUROSEMIDE 20 MG TABLET PO SCH ×2 (06:36→09:13)
[2019-05-11] MEDS: LOSARTAN 25 MG TABLET PO SCH ×2 (06:36→09:13)
[2019-05-11] MEDS: ISOSORBIDE MONONITRATE 60 MG TABLET PO SCH ×2 (06:37→09:10)
[2019-05-11] MEDS: METOPROLOL TARTRATE 50 MG TABLET PO SCH ×3 (06:37→20:45)
[2019-05-11] MEDS: POTASSIUM CHLORIDE 20 MEQ TABLET PO SCH ×2 (06:37→09:11)
[2019-05-11 06:40] LABS: Albumin 3.5 G/DL (3.4-5.0); Bilirubin,Total 0.7 MG/DL (0.2-1.0); Calcium 9.2 MG/DL (8.5-10.1); Osmolality,Calculated 286.3 MOS/KG (273-304); Total Protein 6.7 G/DL (6.4-8.3)
[2019-05-11] MEDS: CLORAZEPATE 3.75 MG TABLET PO SCH (09:10)
[2019-05-11] MEDS: risperiDONE 1 MG TABLET PO SCH ×2 (09:10→16:15)
[2019-05-11] MEDS: CYANOCOBALAMIN 500 MCG TABLET PO SCH (09:10)
[2019-05-11] MEDS: LEVOFLOXACIN 500 MG TABLET PO SCH (09:11)
[2019-05-11] MEDS: GLIMEPIRIDE 2 MG TABLET PO SCH (09:14)
[2019-05-11] MEDS: MULTIVITAMIN (CENTRUM) TABLET PO SCH (09:14)
[2019-05-11] MEDS: DOCUSATE SODIUM 100 MG CAPSULE PO SCH ×2 (09:14→20:45)
[2019-05-11] MEDS: PANTOPRAZOLE 40 MG TABLET PO SCH (09:14)
[2019-05-11] MEDS: ROSUVASTATIN 10 MG TABLET PO SCH (09:14)
[2019-05-11] MEDS ORDERED: OXYMETAZOLINE 0.05% NASAL SPRAY 15 ML BOTTLE BOTH NARES PRN (16:13)
[2019-05-11] MEDS: ENOXAPARIN 40 MG/0.4 ML SYRINGE SUBCUT SCH (20:45)
[2019-05-11] MEDS ORDERED: cloNIDine 0.1 MG TABLET PO SCH (21:00)
[2019-05-12] MEDS: ALBUTEROL/IPRATROPIUM 3 ML NEB RESP TX SCH ×2 (01:49→07:51)
[2019-05-12 07:45] VITALS: BP 145/66
[2019-05-12] MEDS: risperiDONE 1 MG TABLET PO SCH (08:03)
[2019-05-12] MEDS: CYANOCOBALAMIN 500 MCG TABLET PO SCH (08:03)
[2019-05-12] MEDS: CLORAZEPATE 3.75 MG TABLET PO SCH (08:03)
[2019-05-12] MEDS: ROSUVASTATIN 10 MG TABLET PO SCH (08:03)
[2019-05-12] MEDS: LEVOFLOXACIN 500 MG TABLET PO SCH (08:03)
[2019-05-12] MEDS: MULTIVITAMIN (CENTRUM) TABLET PO SCH (08:03)
[2019-05-12] MEDS: SERTRALINE 50 MG TABLET PO SCH (08:03)
[2019-05-12] MEDS: DOCUSATE SODIUM 100 MG CAPSULE PO SCH (08:03)
[2019-05-12] MEDS: ISOSORBIDE MONONITRATE 60 MG TABLET PO SCH (08:03)
[2019-05-12] MEDS: POTASSIUM CHLORIDE 20 MEQ TABLET PO SCH (08:03)
[2019-05-12] MEDS: FUROSEMIDE 20 MG TABLET PO SCH (08:04)
[2019-05-12] MEDS: METOPROLOL TARTRATE 50 MG TABLET PO SCH (08:04)
[2019-05-12] MEDS: PANTOPRAZOLE 40 MG TABLET PO SCH (08:04)
[2019-05-12] MEDS: FEXOFENADINE 180 MG TABLET PO SCH (08:04)
[2019-05-12] MEDS: LOSARTAN 25 MG TABLET PO SCH (08:04)
[2019-05-12] MEDS: GLIMEPIRIDE 2 MG TABLET PO SCH (08:04)
[2019-05-12] MEDS: MONTELUKAST 10 MG TABLET PO SCH (08:04)
[2019-05-12] MEDS ORDERED: predniSONE 20 MG TABLET PO SCH (09:00)
== END 2019-05-12 09:30 | disposition home health service (06) | DRG 190 ==
LOC: N.ED 11:48 → N.EDINP 14:22 → N.2E 15:25
PROVIDERS: ADMIT Internal Medicine; ATTEND Internal Medicine